=== PATIENT | male | born 1975 | race Two or more races ===

== ENCOUNTER 2025-02-06 01:24 | Inpatient (IN) | payer MEDICAID, OTHER ==
[~2025-02-06] VITALS: Ht 175.3 cm; Wt 65.0 kg
--- NOTE | 2025-02-06 01:40 | ECG ---
[facility] Test Date: 2025-02-06 Test Time: 01:27:49 Pat Name: RADHA DUNCAN Department: ED Room: [address] [place] [address] Gender: M Hospit[employer]: ER : 1975 Requested By: BRIDGER ROCKWELL Order Number: [id number] Reading MD: Epifanio Knight Measurements Intervals [place] Rate: 121 P: 83 HI: 142 QRS: 57 QRSD: 76 T: 87 QT: 318 QTc: 452 Interpretive Statements Sinus tachycardia Abnormal R-wave progression, early transition Nonspecific T abnormalities, lateral leads Baseline wander in lead(s) V1 Electronically Signed On 02-06-2025 22:15:18 PDT by Epifanio Knight Please click the below link to view image of tracing.
--- NOTE | 2025-02-06 01:52 | ED.PDOC ---
History of Present Illness HPI Comments 49-year-old male who came to ER via EMS for shortness of breath. Patient has history of lymphoma. Recently discharged from [facility] due to complications of lymphoma. Patient still complaining of right anterior chest wall pain (lymphoma) with associated shortness of breath.,Blood pressure on scene was 115/68 mmHg and saturating at 96% on room air. Chief Complaint: Shortness of Breath Time Seen by MD: 01:52 Reviewed Notes: Vp Notes Allergies: Coded Allergies: NO KNOWN ALLERGIES (Unverified , 02/06/25) Information Source: Patient, Emergency Med Personnel Mode of Arrival: EMS Severity: Moderate Timing: Days Duration: Intermittent Past Medical History PAST MEDICAL HISTORY: Cancer (Lymphoma), CKF Surgical History: Denies all surgeries Family History Family History: Reviewed,noncontributory to illness Social History Smoker: Non-Smoker Alcohol: Denies ETOH Use Drugs: Denies Drug Use Lives In: Home Constitutional: denies: chills, diaphoresis, fatigue, fever, malaise, sweats, weakness, others EENTM: denies: blurred vision, double vision, ear bleeding, ear discharge, ear drainage, ear pain, ear ringing, eye pain, eye redness, hearing loss, mouth pain, mouth swelling, nasal discharge, nose bleeding, nose congestion, nose pain, photophobia, tearing, throat pain, throat swelling, voice changes, others Respiratory: reports: SOB at rest, shortness of breath; denies: cough, hemoptysis, orthopnea, SOB with excertion, stridor, wheezing, others Cardiovascular: reports: chest pain; denies: dizzy spells, diaphoresis, Dyspnea on exertion, edema, irregular heart beat, left arm pain, lightheadedness, palpitations, PND, syncope, others Gastrointestinal: denies: abdomen distended, abdominal pain, blood streaked bowels, constipated, diarrhea, dysphagia, difficulty swallowing, hematemesis, melena, nausea, poor appetite, poor fluid intake, rectal bleeding, rectal pain, vomiting, others Genitourinary: denies: burning, dysuria, flank pain, frequency, hematuria, incontinence, penile discharge, penile sore, pain, testicle pain, testicle swelling, urgency, others Neurological: denies: dizziness, fainting, headache, left sided numbness, left sided weakness, numbness, paresthesia, pre-existing deficit, right sided numbnes s, right sided weakness, seizure, speech problems, tingling, tremors, weakness, others Musculoskeletal: denies: back pain, gout, joint pain, joint swelling, muscle pain, muscle stiffness, neck pain, others Integumetry: denies: bruises, change in color, change in hair/nails, dryness, laceration, lesions, lumps, rash, wounds, others Allergic/Immunocompromised: denies: Difficulty Healing, Frequent Infections, Hives, Itching, others Hematologic/Lymphatic: denies: anemia, blood clots, easy bleeding, easy bruising, swollen glands, others Endocrine: denies: excessive hunger, excessive sweating, excessive thirst, excessive urination, flushing, intolerance to cold, intolerance to heat, unexplained weight gain, unexplained weight loss, others Psychiatric: denies: anxiety, bipolar disorder, depression, hopeless, panic disorder, schizophrenia, sleepless, suicidal, others Physical Exam General Appearance: No Apparent Distress, Normal HEENT: Normal ENT Inspection, Pharynx Normal, TMs Normal Neck: Full Range of Motion, Non-Tender, Normal, Normal Inspection Respiratory: Chest Non-Tender, Lungs Clear, No Accessory Muscle Use, No Respiratory Distress, Normal Breath Sounds Cardiovascular: No Edema, No JVD, No Murmur, No Gallop, Normal Peripheral Pulses, Regular Rate/Rhythm, Other (Lymphoma, right anterior chest wall) Breast Exam: Deferred Gastrointestinal: No Organomegaly, Non Tender, No Pulsatile Mass, Normal Bowel Sounds, Soft Genitalia: Deferred Pelvic: Deferred Rectal: Deferred Extremities: No calf tenderness, Normal capillary refill, Normal inspection, Normal range of motion, Non-tender, No pedal edema Musculoskeletal : Apperance: Normal 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 Was a procedure done?: No Differential Dx Considerations may include: Lymphoma, chest pain, shortness of breath X-Ray, Labs, Meds, VS Vital Signs Date Time Temp Pulse Resp B/P (MAP) Pulse Ox O2 Delivery O2 Flow Rate FiO2 02/06/25 03:45 97.6 112 22 115/68 (84) 98 97.6 02/06/25 03:45 112 22 98 Nasal Cannula* 2 28 02/06/25 01:39 99.0 12 18 115/68 (84) 96 99.0 02/06/25 01:27 121 Lab Test 02/06/25 03:42 02/06/25 03:32 02/06/25 02:55 02/06/25 01:52 Range/Units Lactic Acid Level 2.9 *H 0.4-2.0 mmol/L Urine Color Colorless Yellow Urine Clarity Turbid H Clear Urine pH 7.5 5.0-9.0 Urine Specific [place] 1.012 1.001-1.035 Urine Protein 2+ H Negative Urine Ketones Negative Negative Urine Blood 1+ H Negative /uL Urine Nitrite Negative Negative Urine Bilirubin Negative Negative Urine Urobilinogen Normal Negative mg/dL Urine Leukocyte Esterase 2+ Negative /uL Urine RBC 51 0 - 3 /hpf Urine Microscopic WBC 42 H 0-3 /HPF Urine Squamous Epithelial Cells Mod <5 /hpf Urine Bacteria None seen None Seen /hpf Urine Glucose Normal Normal mg/dL Troponin I High Sensitivity 4 5 </=54 ng/L White Blood Count 20.7 H 4.4-10.8 10^3/uL Red Blood Count 3.20 L 4.5-5.90 10^6/uL Hemoglobin 8.7 L 13.5-17.5 g/dL Hematocrit 26.5 L 41.0-53.0 % Mean Corpuscular Volume 82.9 80.0-100.0 fL Mean Corpuscular Hemoglobin 27.2 L 28.0-32.0 pg Mean Corpuscular Hemoglobin Concent 32.8 32.0-36.0 g/dL Red Cell Distribution Width 20.1 H 11.8-14.3 % Platelet Count 76 L 140-450 10^3/uL Mean Platelet Volume 8.6 6.9-10.8 fL Neutrophils (%) (Auto) 37.0-80.0 % Lymphocytes (%) (Auto) 10.0-50.0 % Monocytes (%) (Auto) 0.0-12.0 % Basophils (%) (Auto) 0.0-2.0 % Neutrophils # (Auto) 1.6-8.6 10 ^3/uL Lymphocytes # (Auto) 0.4-5.4 10 ^3/uL Monocytes # (Auto) 0-1.3 10 ^3/uL Differential Total Cells Counted 100.0 100 Neutrophils % (Manual) 66 37.0-80.0 Band Neutrophils % (Manual) 10 Lymphocytes % (Manual) 3 L 10.0-50.0 Monocytes % (Manual) 12 0-12 Eosinophils % (Manual) 0 0-7 Basophils % (Manual) 0 0.0-2.0 Metamyelocytes % (manual) 6 Myelocytes % (Manual) 3 Promyelocytes % (Manual) 0 Blast Cells % (Manual) 0 Reactive Lymphocytes 0 Platelet Estimate Decreased Large Platelets Few Anisocytosis (manual) Slight Prothrombin Time 11.4 9.3-11.8 sec Prothrombin Time INR 1.08 0.9-1.15 Activated Partial Thromboplast Time 28.5 24.5-34.5 SEC D-Dimer, Quantitative 3.85 H 0.0-0.49 mg/L FEU Sodium Level 137 136-145 mmol/L Potassium Level 4.4 3.5-5.1 mmol/L Chloride Level 102 98-107 mmol/L Carbon Dioxide Level 27 20-31 mmol/L Anion Gap 8 5-15 Blood Urea Nitrogen 15 9-23 mg/dL Creatinine 1.38 H 0.700-1.30 mg/dL Glomerular Filtration Rate Calc 63 >90 mL/min BUN/Creatinine Ratio 10.9 10.0-20.0 Serum Glucose 94 74-106 mg/dL Calcium Level 9.9 8.7-10.4 mg/dL Magnesium Level 1.4 L 1.6-2.6 mg/dL Total Bilirubin 0.2 0.2-1.0 mg/dL Aspartate Amino Transferase (AST) 42 H 13-40 U/L Alanine Aminotransferase (ALT) 18 7-40 U/L Alkaline Phosphatase 192 H 46-116 U/L Total Protein 6.3 5.7-8.2 g/dL Albumin 4.0 3.2-4.8 g/dL Current Medications Medications (Trade) Dose Ordered Sig/Ronal Route Start Time Stop Time Status Last Admin Ceftriaxone Sodium 50 ml @ 100 mls/hr ONCE ONCE IV 02/06/25 03:15 02/06/25 03:44 DC 02/06/25 04:30 CHEST RADIOGRAPH Indication: SOB Technique: Single frontal view of the chest was obtained COMPARISON: None FINDINGS: Lines and Tubes: Left Port-A-Cath terminates in the expected location of the cavoatrial junction. Lungs: Hazy opacity of the left lung base partially obscures the inferior left cardiomediastinal [place]. Pleura: No definite effusion. No pneumothorax. Cardiomediastinal contours: Unremarkable Bones: Unremarkable IMPRESSION: 1. Left basilar hazy opacity suggestive of possible developing infiltrate versus effusion. Time of 1ST Reevaluation: 01:47 Reevaluation 1ST: Unchanged Patient Education/Counseling: Diagnosis, Treatment Family Education/Counseling: No Family Present Sepsis focused exam: focus exam completed (In the initial resuscitation at [facility] 30 mL/kg of IV crystalloid fluid was NOT given within the first 3 hr due to concerns of fluid overload), time: (329) Sepsis Sepsis Reasesment Focused Exam Sepsis focused exam: focus exam completed, time: (329) Departure 1 Departure Time of Disposition: 04:19 Impression: Primary Impression: Lymphoma Additional Impressions: Pneumonia UTI (urinary tract infection) Disposition: ADMITTED INPATIENT Condition: Guarded Discharged With: Self Comments Shortness of Breath with Chest Pain in Patient with Lymphoma Chief Complaint: Shortness of breath and chest wall pain History of Present Illness: 49-year-old male with known history of lymphoma presents to the emergency department with shortness of breath that began yesterday. Patient also reports right chest wall pain in the area where he states he has a known lymphomatous mass. The patient's presentation is complicated by laboratory findings showing pancytopenia, elevated inflammatory markers, and evidence of concurrent infections. Review of Systems: Respiratory: Positive for shortness of breath Musculoskeletal: Positive for chest wall pain Otherwise unable to obtain due to acute presentation Past Medical History: Lymphoma with chest wall involvement Lab Results: CBC: - WBC: 21, 000/L (elevated) - Hemoglobin: 9 g/dL - Hematocrit: 27% - Platelets: 76, 000/L (low) Chemistry: - Creatinine: 1.38 mg/dL (elevated) Other Studies: - D-dimer: 3.85 (elevated) - Lactic acid: 2.9 (elevated) - Troponin: negative x2 Urinalysis: - 2+ leukocytes Imaging and Other Relevant Results: Chest X-ray: Left lower lobe infiltrate versus effusion CT Chest: Ordered to rule out pulmonary embolism (results pending) Medical Decision Making: Summary Statement: 49-year-old male with history of lymphoma presenting with acute shortness of breath and chest wall pain, found to have multiple acute medical issues including pneumonia, UTI, and acute kidney injury in the setting of underlying malignancy. Problem List: 1. Community-acquired pneumonia 2. Urinary tract infection 3. Acute kidney injury 4. Pancytopenia 5. Known lymphoma 6. Possible pulmonary embolism Differential Diagnosis: 1. Pneumonia (bacterial vs. opportunistic) 2. Pulmonary embolism 3. Lymphoma progression 4. Sepsis 5. Pleural effusion ED Course: Patient received IV fluid resuscitation and was started on broad- spectrum antibiotics (Rocephin and azithromycin). CT chest ordered to evaluate for PE given elevated D-dimer. Decision made to admit for further workup and management. Assessment and Plan: 1. Pneumonia with UTI: - Continue IV Rocephin and azithromycin - Monitor response to antibiotics - Blood cultures pending 2. Acute Kidney Injury: - Likely multifactorial due to infection and possible volume depletion - Continue IV fluid resuscitation - Monitor urine output and serial creatinine 3. Pancytopenia: - Likely related to underlying lymphoma - Will require hematology consultation during admission 4. Possible Pulmonary Embolism: - Awaiting CT chest results 5. Disposition: - Admit to medicine service - Will require multidisciplinary care including hematology consultation Billing Information: ICD-10: J18.9 - Pneumonia, unspecified organism ICD-10: N39.0 - Urinary tract infection, site not specified ICD-10: N17.9 - Acute kidney failure, unspecified ICD-10: C85.90 - Non-Hodgkin lymphoma, unspecified, unspecified site ICD-10: D69.49 - Other thrombocytopenia Critical Care Note Critical Care Time?: Yes (35 min-critical care time only) Critical care comment: Total critical care time: Approximately 36 minutes Due to a high probability of clinically significant, life threatening deterioration, the patient required my highest level of preparedness to intervene emergently and I personally spent this critical care time directly and personally managing the patient. This critical care time included obtaining a history; examining the patient; pulse oximetry; ordering and review of studies; arranging urgent treatment with development of a management plan; evaluation of patient's response to treatment; frequent reassessment; and, discussions with other providers. This critical care time was performed to assess and manage the high probability of imminent, life-threatening deterioration that could result in multi-organ failure. It was exclusive of separately billable procedures and treating other patients. Stability Stability form required: No Heart Score Heart Score: Heart Score Response (Comments) Value History N/A 0 EKG N/A 0 Age N/A 0 Risk Factors N/A 0 Troponin N/A 0 Total 0 I personally scribed for BRIDGER ROCKWELL MD ([email or web address]) on 02/06/25 at 01:52. Electronically submitted by Fredy Price ([email or web address]). I personally scribed for BRIDGER ROCKWELL MD ([email or web address]) on 02/06/25 at 04:18. Electronically submitted by Fredy Price ([email or web address]). BRIDGER ROCKWELL MD Feb 06, 2025 01:52
--- NOTE | 2025-02-06 02:15 | DVH ---
CHEST RADIOGRAPH Indication: SOB Technique: Single frontal view of the chest was obtained COMPARISON: None FINDINGS: Lines and Tubes: Left Port-A-Cath terminates in the expected location of the cavoatrial junction. Lungs: Hazy opacity of the left lung base partially obscures the inferior left cardiomediastinal [place]. Pleura: No definite effusion. No pneumothorax. Cardiomediastinal contours: Unremarkable Bones: Unremarkable IMPRESSION: 1. Left basilar hazy opacity suggestive of possible developing infiltrate versus effusion.
[2025-02-06 02:16] LABS: Hematocrit 26.5 % (41.0-53.0); Hemoglobin 8.7 g/dL (13.5-17.5); Mean Corpuscular Hemoglobin 27.2 pg (28.0-32.0); Mean Corpuscular Hgb Conc. 32.8 g/dL (32.0-36.0); Mean Corpuscular Volume 82.9 fL (80.0-100.0); Platelet Count (auto) 76 10^3/uL (140-450); Red Cell Distribution Width 20.1 % (11.8-14.3); White Blood Cell 20.7 10^3/uL (4.4-10.8)
[2025-02-06 02:21] LABS: Basophils % (manual) 0 (0.0-2.0); Blast Cells 0; Eosinophils % (manual) 0 (0-7); Promyelocytes % 0; Reactive Lymphocytes 0
[2025-02-06 02:33] LABS: Alanine Aminotransferase 18 U/L (7-40); Anion Gap 8 (5-15); BUN/Creatinine Ratio 10.9 (10.0-20.0); Blood Urea Nitrogen 15 mg/dL (9-23); Calcium 9.9 mg/dL (8.7-10.4); Carbon Dioxide 27 mmol/L (20-31); Chloride 102 mmol/L (98-107); Glucose 94 mg/dL (74-106); Potassium 4.4 mmol/L (3.5-5.1); Sodium 137 mmol/L (136-145); Total Protein 6.3 g/dL (5.7-8.2)
[2025-02-06 02:34] LABS: Alkaline Phosphatase 192 U/L (46-116); Aspartate Aminotransferase 42 U/L (13-40); Magnesium 1.4 mg/dL (1.6-2.6)
[2025-02-06 02:35] LABS: Bilirubin, Total 0.2 mg/dL (0.2-1.0)
[2025-02-06 02:44] LABS: INR 1.08 (0.9-1.15); Partial Thromboplastin Time 28.5 SEC (24.5-34.5); Prothrombin Time 11.4 sec (9.3-11.8)
[2025-02-06 03:32] LABS: Urine Bacteria None Seen /hpf (None Seen)
[2025-02-06 03:45] VITALS: PULSE 112; RESP 22; O2SAT 98
[2025-02-06 03:54] LABS: Urine Blood 1+ /uL (Negative); Urine Clarity Turbid (Clear); Urine Color Colorless (Yellow); Urine Protein, UAD 2+ (Negative); Urine Specific Gravity 1.012 (1.001-1.035); Urine Squamous Epithelial Cell MOD /hpf (<5); Urine Urobilinogen Normal (Negative); Urine WBC 42 /HPF (0-3); Urine pH 7.5 (5.0-9.0)
[2025-02-06 04:01] LABS: Anisocytosis Slight; Band Neutrophils % (manual) 10; Large Platelets FEW; Lymphocytes % (manual) 3 (10.0-50.0); Metamyelocytes % 6; Monocytes % (manual) 12 (0-12); Myelocytes % 3; Platelet Estimate Decreased
[2025-02-06 04:27] LABS: Lactic Acid w/Reflex 2.9 mmol/L (0.4-2.0)
[2025-02-06] MEDS: cefTRIAXone 1GM/50ML D5W 50 ML IV ONE (04:30)
[2025-02-06] MEDS: AZITHROMYCIN 500MG/ 250ML 250 ML IV ONE (05:00)
[2025-02-06] MEDS: IOHEXOL 350 MG/ML 100ML IJ ONE (05:05)
[2025-02-06] MEDS: ONDANSETRON HCL 4 MG/2 ML VIAL IV ONE (05:20)
--- NOTE | 2025-02-06 05:37 | DVH ---
EXAM: CT Angiography Chest With Intravenous Contrast CLINICAL INDICATION: SOB tachy elevated d-dimer lymphoma r/o PE TECHNIQUE: Axial computed tomographic angiography images of the chest with intravenous contrast. Th is CT exam was performed using one or more of the following dose reduction techniques: automated exp osure control, adjustment of the mA and/or kV according to patient size, and/or use of iterative elayne nstruction technique. MIP reconstructed images were created and reviewed. CONTRAST: COMPARISON: None FINDINGS: ARTIFACTS: Beam hardening artifacts. LIMITATIONS: Suboptimal opacification of the pulmonary arteries. PULMONARY ARTERIES: No pulmonary embolism is identified. Some of the distal pulmonary arteries can not be evaluated due to suboptimal opacification. AORTA: No acute findings. No thoracic aortic aneurysm. LUNGS AND PLEURAL SPACES: Bilateral pleural effusion with compressive atelectasis, greater on the l eft. No mass. No pneumothorax. HEART: Unremarkable. No cardiomegaly. No significant pericardial effusion. No evidence of RV dys function. MEDIASTINUM: Small esophageal hiatal hernia. BONES/JOINTS: No acute fracture. No dislocation. SOFT TISSUES: Unremarkable. LYMPH NODES: Unremarkable. No enlarged lymph nodes. OTHER FINDINGS: . IMPRESSION: 1. No pulmonary embolism is identified. Some of the distal pulmonary arteries cannot be evaluated d ue to suboptimal opacification. 2. Small esophageal hiatal hernia. 3. Bilateral pleural effusion with compressive atelectasis, greater on the left.
[2025-02-06 08:00] VITALS: PULSE 107; RESP 20; O2SAT 96
[2025-02-06] MEDS ORDERED: ESCI1TAB37 PO (09:45)
[2025-02-06] MEDS ORDERED: HYDROcodone-ACET 5/325MG TAB PO PRN (09:45)
[2025-02-06] MEDS ORDERED: NITROGLYCERIN 0.4 MG SL TAB SL PRN (09:45)
[2025-02-06] MEDS ORDERED: CLOT1CRE56 TOP (09:45)
[2025-02-06] MEDS ORDERED: SENN-58 PO (09:45)
[2025-02-06] MEDS ORDERED: DIPH1CRE TOP (09:45)
[2025-02-06] MEDS ORDERED: diphenhdrAMINE-ZINC ACETATE 1 APPLIC APPL TOP PRN (09:45)
[2025-02-06] MEDS ORDERED: ACETAMINOPHEN 325 MG TAB PO PRN (09:45)
[2025-02-06] MEDS ORDERED: DOCUSATE SOD 100 MG CAP PO PRN (09:45)
[2025-02-06] MEDS ORDERED: OXYC-998 PO (09:45)
[2025-02-06] MEDS ORDERED: DIPH25CA66 PO (09:45)
[2025-02-06] MEDS ORDERED: MORPHINE SULFATE INJ 2 MG/ml SYRG IV PRN ×2 (09:45)
[2025-02-06] MEDS ORDERED: FAMO-12 PO (09:45)
[2025-02-06] MEDS ORDERED: ALBU108A5 IN (09:45)
[2025-02-06] MEDS ORDERED: ONDA16TA PO (09:45)
[2025-02-06] MEDS ORDERED: FEBU40TA PO (09:45)
[2025-02-06] MEDS ORDERED: ONDANSETRON HCL 4 MG/2 ML VIAL IV PRN (09:45)
[2025-02-06] MEDS ORDERED: CLOTRIMAZOLE 1 % CREAM 15GM TOP PRN (09:45)
[2025-02-06] MEDS: Febuxostat (Uloric) 40MG TABLET PO SCH (10:00)
--- NOTE | 2025-02-06 10:06 | DVHHP2 ---
History of Present Illness Reason for Visit: Shortness of breath History of Present Illness Steve Avalos is a 49-year-old male with past medical history of lymphoma, who came in for shortness of breath. Patient states that he was released from [facility] yesterday, after being there for 3 weeks. He states he became short of breath so he came to the hospital. Patient was diagnosed with lymphoma about 1 year ago. multiple scabs on upper and lower extremities from scratching Heme/Onc: Cancer (Lymphoma for 1 year) Past Surgical History: None Smoke: No ALCOHOL: none Drugs: None Lives: with Family Domestic Violence: Neg Review of Systems Constitutional: No: Fever, Chills, Sweats, Weakness, Malaise, Other Eyes: No: Pain, Vision change, Conjunctivae inflammation, Eyelid inflammation, Other, Redness ENT: No: Ear pain, Ear discharge, Nose pain, Nose discharge, Nose congestion, Mouth pain, Mouth swelling, Throat pain, Throat swelling, Other Respiratory: Shortness of breath; No: Cough, Dry, SOB with excertion, Wheezing, Hemoptysis, Pleuritic Pain, Sputum, Wheezing, Other Cardiovascular: No: Chest Pain, Palpitations, Orthopnea, Paroxysmal Noc. Dyspnea, Edema, Lt Headedness, Other Gastrointestinal: No: Nausea, Vomiting, Abdominal Pain, Diarrhea, Constipation, Melena, Hematochezia, Other Genitourinary: No Dysuria, No Frequency, No Incontinence, No Hematuria, No Retention, No Other Musculoskeletal: No: other, neck pain, shoulder pain, arm pain, back pain, hand pain, leg pain, foot pain Skin: No: Rash, Lesions, Jaundice, Bruising, Other Neurological: No: Weakness, Numbness, Incoordination, Change in speech, Confusion, Seizures, Other Allergies: Coded Allergies: NO KNOWN ALLERGIES (Unverified , 02/06/25) Medications Current Medications Medications Dose Ordered Sig/Ronal Route Start Time Stop Time Status Last Admin Dose Admin Acetaminophen/ Hydrocodone Bitart 1 tab Q4HP PRN PO 02/06/25 09:45 UNV Ondansetron HCl 4 mg Q4HP PRN IV 02/06/25 09:45 UNV Docusate Sodium 100 mg BIDPRN PRN PO 02/06/25 09:45 UNV Acetaminophen 650 mg Q6HP PRN PO 02/06/25 09:45 UNV Morphine Sulfate 2 mg Q4HPRN PRN IV 02/06/25 09:45 UNV Nitroglycerin 0.4 mg Q5MINP PRN SL 02/06/25 09:45 UNV Morphine Sulfate 2 mg Q30M PRN IV 02/06/25 09:45 UNV Exam Vital Signs Vital Signs Date Time Temp Pulse Resp B/P (MAP) Pulse Ox O2 Delivery O2 Flow Rate FiO2 02/06/25 08:00 107 20 96 Room Air* 0 21 02/06/25 08:00 97.5 100/55 (70) 97.5 General Appearance: Alert, Oriented X3, Cooperative, moderate distress, Other (Ill appearing) HEENT: Atraumatic Respiratory: Other (Diminshed breath sounds) Cardiovascular: Normal S1, Normal S2, Other (tachycardia) Abdominal: Normal bowel sounds, Soft, No tenderness, Other (bilateral nephrostomy tubes) Extremities: No clubbing, No cyanosis, No edema, Normal pulses Skin: No rashes, No breakdown, No significant lesion (multiple scabs on upper and lower extremities from scratching) Neuro: Other (weak) Psych/Mental Status: Mental status NL Labs/Xrays Labs Test 02/06/25 04:45 02/06/25 03:32 02/06/25 02:55 02/06/25 01:52 Range/Units Lactic Acid Level 2.8 *H 0.4-2.0 mmol/L Urine Color Colorless Yellow Urine Clarity Turbid H Clear Urine pH 7.5 5.0-9.0 Urine Specific [place] 1.012 1.001-1.035 Urine Protein 2+ H Negative Urine Ketones Negative Negative Urine Blood 1+ H Negative /uL Urine Nitrite Negative Negative Urine Bilirubin Negative Negative Urine Urobilinogen Normal Negative mg/dL Urine Leukocyte Esterase 2+ Negative /uL Urine RBC 51 0 - 3 /hpf Urine Microscopic WBC 42 H 0-3 /HPF Urine Squamous Epithelial Cells Mod <5 /hpf Urine Bacteria None seen None Seen /hpf Urine Glucose Normal Normal mg/dL Troponin I High Sensitivity 4 </=54 ng/L White Blood Count 20.7 H 4.4-10.8 10^3/uL Red Blood Count 3.20 L 4.5-5.90 10^6/uL Hemoglobin 8.7 L 13.5-17.5 g/dL Hematocrit 26.5 L 41.0-53.0 % Mean Corpuscular Volume 82.9 80.0-100.0 fL Mean Corpuscular Hemoglobin 27.2 L 28.0-32.0 pg Mean Corpuscular Hemoglobin Concent 32.8 32.0-36.0 g/dL Red Cell Distribution Width 20.1 H 11.8-14.3 % Platelet Count 76 L 140-450 10^3/uL Mean Platelet Volume 8.6 6.9-10.8 fL Neutrophils (%) (Auto) 37.0-80.0 % Lymphocytes (%) (Auto) 10.0-50.0 % Monocytes (%) (Auto) 0.0-12.0 % Basophils (%) (Auto) 0.0-2.0 % Neutrophils # (Auto) 1.6-8.6 10 ^3/uL Lymphocytes # (Auto) 0.4-5.4 10 ^3/uL Monocytes # (Auto) 0-1.3 10 ^3/uL Differential Total Cells Counted 100.0 100 Neutrophils % (Manual) 66 37.0-80.0 Band Neutrophils % (Manual) 10 Lymphocytes % (Manual) 3 L 10.0-50.0 Monocytes % (Manual) 12 0-12 Eosinophils % (Manual) 0 0-7 Basophils % (Manual) 0 0.0-2.0 Metamyelocytes % (manual) 6 Myelocytes % (Manual) 3 Promyelocytes % (Manual) 0 Blast Cells % (Manual) 0 Reactive Lymphocytes 0 Platelet Estimate Decreased Large Platelets Few Anisocytosis (manual) Slight Prothrombin Time 11.4 9.3-11.8 sec Prothrombin Time INR 1.08 0.9-1.15 Activated Partial Thromboplast Time 28.5 24.5-34.5 SEC D-Dimer, Quantitative 3.85 H 0.0-0.49 mg/L FEU Sodium Level 137 136-145 mmol/L Potassium Level 4.4 3.5-5.1 mmol/L Chloride Level 102 98-107 mmol/L Carbon Dioxide Level 27 20-31 mmol/L Anion Gap 8 5-15 Blood Urea Nitrogen 15 9-23 mg/dL Creatinine 1.38 H 0.700-1.30 mg/dL Glomerular Filtration Rate Calc 63 >90 mL/min BUN/Creatinine Ratio 10.9 10.0-20.0 Serum Glucose 94 74-106 mg/dL Calcium Level 9.9 8.7-10.4 mg/dL Magnesium Level 1.4 L 1.6-2.6 mg/dL Total Bilirubin 0.2 0.2-1.0 mg/dL Aspartate Amino Transferase (AST) 42 H 13-40 U/L Alanine Aminotransferase (ALT) 18 7-40 U/L Alkaline Phosphatase 192 H 46-116 U/L Total Protein 6.3 5.7-8.2 g/dL Albumin 4.0 3.2-4.8 g/dL EXAM: CT Angiography Chest With Intravenous Contrast FINDINGS: ARTIFACTS: Beam hardening artifacts. LIMITATIONS: Suboptimal opacification of the pulmonary arteries. PULMONARY ARTERIES: No pulmonary embolism is identified. Some of the distal pulmonary arteries cannot be evaluated due to suboptimal opacification. AORTA: No acute findings. No thoracic aortic aneurysm. LUNGS AND PLEURAL SPACES: Bilateral pleural effusion with compressive atelectasis, greater on the left. No mass. No pneumothorax. HEART: Unremarkable. No cardiomegaly. No significant pericardial effusion. No evidence of RV dysfunction. MEDIASTINUM: Small esophageal hiatal hernia. BONES/JOINTS: No acute fracture. No dislocation. SOFT TISSUES: Unremarkable. LYMPH NODES: Unremarkable. No enlarged lymph nodes. OTHER FINDINGS: . IMPRESSION: 1. No pulmonary embolism is identified. Some of the distal pulmonary arteries cannot be evaluated due to suboptimal opacification. 2. Small esophageal hiatal hernia. 3. Bilateral pleural effusion with compressive atelectasis, greater on the left. CHEST RADIOGRAPH FINDINGS: Lines and Tubes: Left Port-A-Cath terminates in the expected location of the cavoatrial junction. Lungs: Hazy opacity of the left lung base partially obscures the inferior left cardiomediastinal silhouette. Pleura: No definite effusion. No pneumothorax. Cardiomediastinal contours: Unremarkable Bones: Unremarkable IMPRESSION: 1. Left basilar hazy opacity suggestive of possible developing infiltrate versus effusion. Assessment/Plan Assessment/Plan Assessment: Pneumonia, Pleural effusion, Lymphoma, Lactic acidosis, Acute on chronic kidney disease, Malnutrition, Plan: Admit to [facility], Dietary consult, IV antibiotics, IV hydration, Regular diet, X-ray tomorrow morning, Consider IR consult for thoracentesis if pleural effusions worsen, Home medications reconciled, Plan discussed with: Patient, Other (Mother) My Orders Orders - SCHWING,DORIS R INVESTIGATOR [employer] Procedure Category Date Status Time Admit ADMIT 02/06/25 Transmitted 09:33 Code Status CODE 02/06/25 Transmitted 09:33 Hydrocodone-Acet PHA 02/06/25 Logged 5/325mg Tab ([place] 09:45 Ondansetron Hcl PHA 02/06/25 Logged (Zofran) 09:45 Docusate Sodium PHA 02/06/25 Logged Capsule (Colace 09:45 Complete Blood Count LAB 02/07/25 Verified 04:00 Comprehensive LAB 02/07/25 Verified Metabolic Panel 04:00 Condition: Critical TOREY 02/06/25 In Process 09:33 Acetaminophen Tablet PHA 02/06/25 Logged (Tylenol Tablet) 09:45 Morphine Sulfate PHA 02/06/25 Logged Injection 09:45 Nitroglycerin PHA 02/06/25 Logged Sublingual (Ntrostat 09:45 Morphine Sulfate PHA 02/06/25 Logged Injection 09:45 Stat Ekg For Chest TOREY 02/06/25 In Process Pain 09:33 Notify Md Of Changes TOREY 02/06/25 In Process From Base 09:33 Bereavement Coordinator For TOREY 02/06/25 In Process 24 Hours 09:33 Emergency Dysrhythmia TOREY 02/06/25 In Process Protocol 09:33 Rhythm Strips Once TOREY 02/06/25 In Process Every Shift 09:33 Oxygen By Nasal RT 02/06/25 Transmitted Cannula 09:33 Clotrimazole 1% PHA 02/06/25 Verified Topical Cream 09:45 Diphenhdramine-Zinc PHA 02/06/25 Verified Cream (Benadryl Crea 09:45 Famotidine Tablet PHA 02/06/25 Verified (Pepcid Tablet) 10:00 Senna Pod Tablet PHA 02/06/25 Verified (Senokot Tablet) 10:00 (Nf) Escitalopram PHA 02/06/25 Verified Oxalate 10:00 (Nf) Febuxostat PHA 02/06/25 Verified (Uloric) 10:00 (Nf) Oxycodone Hcl PHA 02/06/25 Verified (Oxycodone Hydrochlor 09:45 Date of Service: Feb 06, 2025 Billing Provider: DORIS LARESP Common Visit Codes: [id number] INP/OBS CARE (HIGH) DORIS LARES INVESTIGATOR [employer] Feb 06, 2025 10:06
[2025-02-06] MEDS: SODIUM CHLORIDE 0.9% 1,000 ML IV ONE (10:21)
[2025-02-06] MEDS: FAMOTIDINE 20 MG TAB PO SCH (12:06)
[2025-02-06] MEDS: SENNA 8.6 MG TAB PO SCH (12:06)
[2025-02-06] MEDS: CITALOPRAM HYDROBR 20 MG TAB PO SCH (12:06)
[2025-02-06] MEDS: oxyCODONE HCL 5MG TAB PO PRN (12:07)
[2025-02-06 17:00] VITALS: TEMP 98
[2025-02-06 19:00] VITALS: BP 93/54; RESP 16; O2SAT 96
[2025-02-06 20:00] VITALS: PULSE 110
[2025-02-07] MEDS ORDERED: cefTRIAXone 1GM/50ML D5W 50 ML IV SCH (09:00)
[2025-02-07] MEDS ORDERED: AZITHROMYCIN 500MG/ 250ML 250 ML IV SCH (10:00)
== END 2025-02-06 21:00 | disposition left against medical advice (07) | DRG 469 ==
LOC: ER 01:24 → EDBD 01:24 → EDSEX 01:24 → OVERFLOW 09:33
PROVIDERS: ADMIT Nurse Practitioner Family; ATTEND Nurse Practitioner Family
DX: N17.9 Acute kidney failure, unspecified (principal); J15.69 Pneumonia due to other Gram-negative bacteria; D61.818 Other pancytopenia; E87.20 Acidosis, unspecified; J15.9 Unspecified bacterial pneumonia; E44.1 Mild protein-calorie malnutrition; J90 Pleural effusion, not elsewhere classified; C85.90 Non-Hodgkin lymphoma, unspecified, unspecified site; Z53.29 Procedure and treatment not carried out because of patient's decision for other reasons; N18.9 Chronic kidney disease, unspecified; N39.0 Urinary tract infection, site not specified; Z79.899 Other long term (current) drug therapy; Z68.21 Body mass index [BMI] 21.0-21.9, adult
CPT/HCPCS: 36415; 71045; 71275; 80053; 81001; 83605; 83735; 84484; 85007; 85027; 85379; 85610; 85730; 87040; 93005; 96365; 96375; 99291; G0378; J2405